=== PATIENT | female | born 1960 | race Caucasian/White ===

== ENCOUNTER → 2019-03-12 | Outpatient (CLI) | payer BC | LOC: LAB 19:14 → LAB SHORT 19:14 | PROVIDERS: Nurse Practitioner Family | DX: Z01.419 Encounter for gynecological examination (general) (routine) without abnormal findings (principal) | CPT/HCPCS: G0145 ==

== ENCOUNTER → 2020-04-15 | Outpatient (CLI) | payer BC | END | disposition home or self-care (01) | LOC: LAB EV 11:37 → LAB SHORT 11:37 | DX: R06.00 Dyspnea, unspecified (principal) | CPT/HCPCS: 83880 ==

== ENCOUNTER 2023-02-28 10:13 | Day surgery (SDC) | payer BC ==
[~2023-02-28] VITALS: Ht 162.6 cm; Wt 79.0 kg
[2023-02-28] MEDS ORDERED: LOSA25 (10:28)
[2023-02-28] MEDS ORDERED: CITALOPRAM HBR10 MG (10:28)
== END 2023-02-28 13:09 | disposition home or self-care (01) ==
LOC: ORSCSDS 10:13
PROVIDERS: Internal Medicine Gastroenterology
PROC: 0DBE8ZX Excision of Large Intestine, Via Natural or Artificial Opening Endoscopic, Diagnostic (ICD-10-PCS; principal; 2023-02-28 11:30)
DX: R19.7 Diarrhea, unspecified (principal); I10 Essential (primary) hypertension; G47.33 Obstructive sleep apnea (adult) (pediatric); K21.9 Gastro-esophageal reflux disease without esophagitis; Z79.899 Other long term (current) drug therapy
CPT/HCPCS: 88305; J2704; J7120

== ENCOUNTER 2024-12-16 19:00 | Emergency (ER) | payer OTHER ==
[~2024-12-16] VITALS: Ht 160 cm; Wt 81.7 kg
[~2024-12-16 19:00] MED LIST: CITALOPRAM HBR10 MG PO; LOSA25 PO; MULVITA PO; VALA500 PO
[2024-12-16 19:20] VITALS: BP 221/96
== END 2024-12-16 21:49 | disposition left against medical advice (07) ==
LOC: ER 19:00
DX: R51.9 Headache, unspecified (principal); Z53.21 Procedure and treatment not carried out due to patient leaving prior to being seen by health care provider
CPT/HCPCS: 70450; 99282-25

== ENCOUNTER → 2025-08-13 | Outpatient (CLI) | payer OTHER | END | disposition home or self-care (01) | LOC: LAB 08:17 → LAB SHORT 08:17 | PROVIDERS: Physician Assistant | DX: Z01.419 Encounter for gynecological examination (general) (routine) without abnormal findings (principal) | CPT/HCPCS: 87624; G0145 ==